=== PATIENT | female | born 1965 | race Hispanic/Latino ===

== ENCOUNTER → 2019-08-24 | Emergency (ER) | payer OTHER ==
[~2019-08-24] VITALS: Ht 162.6 cm; Wt 68.0 kg
[~2019-08-24] MED LIST: IOPAMIDOL 370 MG/ML 200 ML INFUS..BTL INJ ONE; KETOROLAC TROMETHAMINE 30 MG/ML VIAL IV STA; MORPHINE SULFATE INJ 4 MG/ML INJ 1ML IV STA; ONDANSETRON HCL INJ 2MG/ML 2ML 2 MG/ML VIAL IV STA; SODIUM CHLORIDE 0.9% 1000ML 1,000 ML IV STA; SODIUM CHLORIDE 0.9% 50ML 50 ML ONE
[2019-08-24 19:31] LABS: BILIRUBIN,URINE NEGATIVE (NEGATIVE); CLARITY,URINE SL CLOUDY (CLEAR); COLOR,URINE YELLOW (YELLOW); KETONES,URINE NEGATIVE (NEGATIVE); LEUKOCYTE ESTERASE ,URINE TRACE (NEGATIVE); NITRITE,URINE NEGATIVE (NEGATIVE); PROTEIN,URINE DIPSTICK 1+ (NEGATIVE); URINE UROBILINOGEN 1 mg/dL (0.2 - 1)
[2019-08-24 19:42] LABS: WBC,URINE (MAN) 0-5 /HPF (0-5)
[2019-08-24 19:43] LABS: BACTERIA,URINE MODERATE /HPF; EPITHELIAL CELLS,URINE FEW /LPF; RBC,URINE 0-5 /HPF (0-5)
[2019-08-24 20:17] LABS: BASOPHILS % 0.2 % (0.0-1.0); HEMATOCRIT 36.4 % (34.2-44.1); HEMOGLOBIN 12.3 g/dL (12.0-16.0); LYMPHOCYTES # (AUTO) 0.6 (1.0-3.2); LYMPHOCYTES % 4.4 % (18.0-39.1); MEAN CORPUSCULAR HEMOGLOBIN 30.5 pg (28-32); MEAN CORPUSCULAR HGB CONC 33.8 g/dL (31-35); MEAN CORPUSCULAR VOLUME 90.3 fL (81-99); MONOCYTES # (AUTO) 1.1 (0.2-0.8); MONOCYTES % 8.2 % (4.4-11.3); NEUTROPHILS # (AUTO) 11.9 (2.1-6.9); NEUTROPHILS % 86.8 % (38.7-80.0); PLATELET COUNT 161 x10e3/uL (140-360); RED BLOOD COUNT 4.03 x10e6/uL (3.6-5.1); RED CELL DISTRIBUTION WIDTH 12.8 % (11.7-14.4)
--- NOTE | 2019-08-24 20:36 | Emergency Department Note ---
History of Present Illnes History of Present Illness Chief Complaint: Genitourinary Stated Complaint: PAIN IN LOWEWR BACK, AND RECURRING FEVER SINCE FRI History of Present Illness This is a 53 year old female . Historian: Patient Lead Software Developer Required: No Onset (how long ago): day(s) Location: LOWER ABD PAIN AND LOWER BACK PAIN Quality: ACHING Radiation: back Severity: mild, moderate Onset quality: gradual Duration (how long): day(s) (2 DAYS) Progression: unchanged Chronicity: new Relieving factors: none Exacerbating factors: none Associated symptoms: fever/chills Previous service: medications given (WENT TO AN URGENT CARE YESTERDAY AND dx WITH uti AND GIVEN BACTRIM ) (JIE BECKFORD NP) Past Medical/Family History Physician Review I have reviewed the patient's past medical and family history. Any updates have been documented here. (JIE BECKFORD NP) Past Medical History Recent Fever: No Clinical Suspicion of Infectio: No New/Unexplained Change in Ment: No Past Medical History: None Past Surgical History: None (JIE BECKFORD NP) Social History Smoking Cessation: Never Smoker Counseling Performed: No Alcohol Use: None Any Illegal Drug Use: No TB Exposure/Symptoms: No Physically hurt or threatened: No (JIE BECKFORD NP) Other Any Pre-Existing Lines (PICC,: No Is patient up to date on immun: No Last Flu: never Last Pneumovax: never (JIE BECKFORD NP) Review of Systems Review of Systems Constitutional: fever EENTM: no symptoms Cardiovascular: no symptoms Gastointestinal/Abdominal: no symptoms Genitourinary: dysuria, frequency, pain Musculoskeletal: no symptoms Integumentary: no symptoms Neurological: no symptoms Psychological: no symptoms Endocrine: no symptoms Hematological/Lymphatic: no symptoms Review of other systems All other systems reviewed and negative. (JIE BECKFORD NP) Physical Exam Related Data Allergies: Coded Allergies: No Known Allergies (Unverified , 08/24/19) Triage Vital Signs Vital Signs Date Time Temp Pulse Resp B/P (MAP) Pulse Ox O2 Delivery O2 Flow Rate FiO2 08/24/19 18:23 98.9 103 16 126/79 97 (JIE BECKFORD NP) Exam Narrative Exam Narrative PTIENT IS A 55 YEAR OLD FEMALE THAT PRESENTS WITH DYSURIA X 2 DAYS . PATIENT STATES THAT SHE WAS SEEN YESTERDAY AT AN UC AND DX WITH UTI. GIVEN BACTRIM- NOT BETTER TODAY. PATIENT ALSO STATES SHE IS HAVING PAIN AT END OF URINATION AND FEVER. (JIE BECKFORD TUBING SUPERVISOR) Physical Exam CONSTITUTIONAL Constitutional: well-developed, well-nourished HENT HENT: normocephalic, atraumatic EYES Eyes: PERRL NECK Neck: ROM normal, supple PULMONARY Pulmonary: effort normal, breath sounds normal CARDIOVASCULAR Cardiovascular: regular rhythm GASTROINTESTINAL Abdominal: soft, tender, left CVA tenderness, right CVA tenderness (PATIENT STATES SHE HAS HAS 4 UTI IN THE RECENT PAST) GENITOURINARY SKIN Skin: warm MUSCULOSKELETAL Musculoskeletal: ROM normal NEUROLOGICAL Neurological: alert, oriented x 3 PSYCHOLOGICAL Psychiatric/behavioral: mood/affect normal (JIE BECKFORD TUBING SUPERVISOR) Results Laboratory Lab results reviewed: Yes Laboratory comments Laboratory Tests Test 08/24/19 20:00 08/24/19 18:25 White Blood Count 13.74 x10e3/uL (4.8-10.8) Red Blood Count 4.03 x10e6/uL (3.6-5.1) Hemoglobin 12.3 g/dL (12.0-16.0) Hematocrit 36.4 % (34.2-44.1) Mean Corpuscular Volume 90.3 fL (81-99) Mean Corpuscular Hemoglobin 30.5 pg (28-32) Mean Corpuscular Hemoglobin Concent 33.8 g/dL (31-35) Red Cell Distribution Width 12.8 % (11.7-14.4) Platelet Count 161 x10e3/uL (140-360) Neutrophils (%) (Auto) 86.8 % (38.7-80.0) Lymphocytes (%) (Auto) 4.4 % (18.0-39.1) Monocytes (%) (Auto) 8.2 % (4.4-11.3) Eosinophils (%) (Auto) 0.0 % (0.0-6.0) Basophils (%) (Auto) 0.2 % (0.0-1.0) Neutrophils # (Auto) 11.9 (2.1-6.9) Lymphocytes # (Auto) 0.6 (1.0-3.2) Monocytes # (Auto) 1.1 (0.2-0.8) Eosinophils # (Auto) 0.0 (0.0-0.4) Basophils # (Auto) 0.0 (0.0-0.1) Absolute Immature Granulocyte (auto 0.06 x10e3/uL (0-0.1) Sodium Level 136 mmol/L (136-145) Potassium Level 3.1 mmol/L (3.5-5.1) Chloride Level 101 mmol/L (98-107) Carbon Dioxide Level 21 mmol/L (22-29) Anion Gap 17.1 mmol/L (8-16) Blood Urea Nitrogen 9 mg/dL (7-26) Creatinine 0.81 mg/dL (0.57-1.11) Estimat Glomerular Filtration Rate > 60 ML/MIN (60-) BUN/Creatinine Ratio 11 (6-25) Glucose Level 115 mg/dL (74-118) Calcium Level 9.0 mg/dL (8.4-10.2) Total Bilirubin 0.6 mg/dL (0.2-1.2) Aspartate Amino Transf (AST/SGOT) 11 IU/L (5-34) Alanine Aminotransferase (ALT/SGPT) 11 IU/L (0-55) Alkaline Phosphatase 73 IU/L (40-150) Total Protein 7.5 g/dL (6.5-8.1) Albumin 3.5 g/dL (3.5-5.0) Globulin 4.0 g/dL (2.3-3.5) Albumin/Globulin Ratio 0.9 (0.8-2.0) Urine Color Yellow (YELLOW) Urine Clarity Sl cloudy (CLEAR) Urine pH 7.5 (5 - 7) Urine Specific [place] 1.030 (1.010-1.025) Urine Protein 1+ (NEGATIVE) Urine Glucose (UA) Negative (NEGATIVE) Urine Ketones Negative (NEGATIVE) Urine Blood 1+ (NEGATIVE) Urine Nitrite Negative (NEGATIVE) Urine Bilirubin Negative (NEGATIVE) Urine Urobilinogen 1 mg/dL (0.2 - 1) Urine Leukocyte Esterase Trace (NEGATIVE) Urine RBC 0-5 /HPF (0-5) Urine WBC 0-5 /HPF (0-5) Urine Epithelial Cells Few /LPF (NONE) Urine Bacteria Moderate /HPF (NONE) (RAMY CALDERON DO) Imaging Impressions [facility] [address] [id number] Patient Name: MK DIOR MR #: [id number] : 1965 Age/Sex: 53/F Req #: [id number] [facility] Physician: Ordered by: JIE BECKFORD NP Report #: [id number] Location: ER Room/Bed: Procedure: [id number] CT/CT ABDOMEN/PELVIS W Exam Date: 08/24/19 Exam Time: 2119 REPORT STATUS: Signed EXAM: CT Abdomen and Pelvis WITH contrast INDICATION: ^FLANK AND ABD PAIN ^[id number] ^2119 COMPARISON: None. TECHNIQUE: Abdomen and pelvis were scanned utilizing a multidetector helical scanner from the lung base to the pubic symphysis after administration of IV contrast. Coronal and sagittal reformations were obtained. Routine protocol was performed. Scan was performed when during portal venous phase. IV CONTRAST: 100 mL of Isovue 370 ORAL CONTRAST: Water COMPLICATIONS: None RADIATION DOSE: Total DLP: 283 mGy*cm Estimated effective dose: (DLP x 0.015 x size factor) mSv CTDIvol has been reviewed. It is below the limits set by the Radiation Protocol Committee (RPC). Dose modulation, iterative reconstruction, and/or weight based adjustment of the mA/kV was utilized to reduce the radiation dose to as low as reasonably achievable. FINDINGS: LINES and TUBES: None. LOWER THORAX: Unremarkable HEPATOBILIARY: No concerning hepatic lesion. Few small hepatic cysts. No biliary ductal dilation. GALLBLADDER: No radio-opaque stones or sludge. No wall thickening. SPLEEN: No splenomegaly. PANCREAS: No focal masses or ductal dilatation. ADRENALS: No adrenal nodules KIDNEYS/URETERS: Normal appearance of the right kidney. Subtle striated left nephrogram with mild left perinephric inflammation. No stone or discrete mass. No hydronephrosis. GI TRACT: No abnormal distention, wall thickening, or evidence of bowel obstruction. Appendix is normal. PELVIC ORGANS/BLADDER: The uterus contains several small fibroids. The urinary bladder is decompressed. LYMPH NODES: No lymphadenopathy. VESSELS: Scattered atherosclerotic calcifications. PERITONEUM / RETROPERITONEUM: Small amount of free fluid in the deep pelvis. BONES: No acute osseous abnormality. Left pelvic bone island. SOFT TISSUES: Unremarkable. IMPRESSION: Subtle left renal striated nephrogram and left perinephric inflammation suggestive of pyelonephritis. No collecting system obstruction. Otherwise unremarkable CT scan of the abdomen and pelvis. Signed by: Eliz Rodríguez MD on 08/24/2019 10:19 PM Dictated By: ELIZ RODRÍGUEZ MD 18 Transcribed By: ADELA on 08/24/192218 COPY TO: JIE BECKFORD NP~ (RAMY CALDERON DO) Critical Care Time Subsequent provider I assumed direction of critical care for this patient from another provider of my specialty. (JIE BECKFORD NP) Assessment & Plan Assessment & Plan Assessment & Plan 1809- PATIENT GAVE URINE AND SENT TO LAB. PATIENT IN [facility] 1999- PATIENT IN [facility], UPDATE GIVEN T DR CALDERON. URINE RESULTS BACK AND DISCUSSED WITH PATIENT. IV PLACED AND ADDITIONAL ORDERS WRITTEN. 2039- REPORT GIVEN TO DR CALDERON, AWAITING ALL RESULTS (JIE BECKFORD NP) Problems: (1) Pyelonephritis of left kidney Assessment & Plan Plan : Patient to be discharged with new precsription of Cipro 500 mg . patient to f/u with Urology (RAMY CALDERON DO) Depart Disposition: HOME, SELF-CARE Last Vital Signs Date Time Temp Pulse Resp B/P (MAP) Pulse Ox O2 Delivery O2 Flow Rate FiO2 08/24/19 18:23 98.9 103 16 126/79 97 (JIE BECKFORD NP) Attestation Medications in the ED The patient's history, exam findings, diagnostics, and a summary of any interventions or procedures was reviewed in detail with our MILTON. I personally interviewed and examined the patient, and I have reviewed and agree with the HPI andexam. My personal exam shows [ TTP, Left flank pain]. I confirm the diagnosis as documented by the MILTON. I have reviewed and agree with the care plan articulated in the disposition section. I made the final disposition of patient (RAMY CALDERON DO) JIE BECKFORD NP August 24, 2019 18:43 RAMY CALDERON DO August 24, 2019 22:34
[2019-08-24 20:48] LABS: ALANINE AMINOTRANSFERASE 11 IU/L (0-55); ALBUMIN 3.5 g/dL (3.5-5.0); ALBUMIN/GLOBULIN RATIO 0.9 (0.8-2.0); ALKALINE PHOSPHATASE 73 IU/L (40-150); ANION GAP 17.1 mmol/L (8-16); BLOOD UREA NITROGEN 9 mg/dL (7-26); BUN/CREATININE RATIO 11 (6-25); CARBON DIOXIDE 21 mmol/L (22-29); CHLORIDE 101 mmol/L (98-107); CREATININE, SERUM 0.81 mg/dL (0.57-1.11); EST GLOMERULAR FILTRATION RATE > 60 ML/MIN (60-); GLUCOSE 115 mg/dL (74-118); POTASSIUM 3.1 mmol/L (3.5-5.1); SODIUM 136 mmol/L (136-145)
--- NOTE | 2019-08-24 22:22 | Diagnostic Imaging Report ---
EXAM: CT Abdomen and Pelvis WITH contrast INDICATION: ^FLANK AND ABD PAIN ^[id number] ^2119 COMPARISON: None. TECHNIQUE: Abdomen and pelvis were scanned utilizing a multidetector helical scanner from the lung base to the pubic symphysis after administration of IV contrast. Coronal and sagittal reformations were obtained. Routine protocol was performed. Scan was performed when during portal venous phase. IV CONTRAST: 100 mL of Isovue 370 ORAL CONTRAST: Water COMPLICATIONS: None RADIATION DOSE: Total DLP: 283 mGy*cm Estimated effective dose: (DLP x 0.015 x size factor) mSv CTDIvol has been reviewed. It is below the limits set by the Radiation Protocol Committee (RPC). Dose modulation, iterative reconstruction, and/or weight based adjustment of the mA/kV was utilized to reduce the radiation dose to as low as reasonably achievable. FINDINGS: LINES and TUBES: None. LOWER THORAX: Unremarkable HEPATOBILIARY: No concerning hepatic lesion. Few small hepatic cysts. No biliary ductal dilation. GALLBLADDER: No radio-opaque stones or sludge. No wall thickening. SPLEEN: No splenomegaly. PANCREAS: No focal masses or ductal dilatation. ADRENALS: No adrenal nodules KIDNEYS/URETERS: Normal appearance of the right kidney. Subtle striated left nephrogram with mild left perinephric inflammation. No stone or discrete mass. No hydronephrosis. GI TRACT: No abnormal distention, wall thickening, or evidence of bowel obstruction. Appendix is normal. PELVIC ORGANS/BLADDER: The uterus contains several small fibroids. The urinary bladder is decompressed. LYMPH NODES: No lymphadenopathy. VESSELS: Scattered atherosclerotic calcifications. PERITONEUM / RETROPERITONEUM: Small amount of free fluid in the deep pelvis. BONES: No acute osseous abnormality. Left pelvic bone island. SOFT TISSUES: Unremarkable. IMPRESSION: Subtle left renal striated nephrogram and left perinephric inflammation suggestive of pyelonephritis. No collecting system obstruction. Otherwise unremarkable CT scan of the abdomen and pelvis. Signed by: Obed Akhtar MD on 08/24/2019 10:19 PM
[2019-08-24 23:02] VITALS: BP 120/73
== END | disposition home or self-care (01) ==
LOC: ER 17:52
DX: R30.0 Dysuria (principal); R10.9 Unspecified abdominal pain; M54.5 Low back pain; N12 Tubulo-interstitial nephritis, not specified as acute or chronic
CPT/HCPCS: 36415; 74177; 80053; 81001; 85025; 87086; 87186; 99284; J1885; J2405; J7030; Q9967